=== PATIENT | male | born 1970 | race Caucasian/White ===

== ENCOUNTER 2020-07-25 09:30 | Emergency (ER) | payer OTHER ==
--- NOTE | 2020-07-25 10:15 | RADIOLOGY REPORT (SQ) ---
EXAM DESCRIPTION: HAND LEFT 3 VIEWS IMAGES COMPLETED DATE/TIME: 07/25/2020 9:55 am REASON FOR STUDY: finger deformity COMPARISON: None. EXAM PARAMETERS: NUMBER OF VIEWS: Three views. TECHNIQUE: AP, lateral and oblique radiographic images acquired of the left hand. LIMITATIONS: None. FINDINGS: MINERALIZATION: Normal. BONES: There are 2 separate fractures ; an acute comminuted fracture of the proximal aspect of the 2n d middle phalanx that is associated with dislocation of the 2nd PIP joint, and a nondisplaced vertica lly oriented fracture of the proximal aspect of the 2nd distal phalanx. JOINTS: As above. SOFT TISSUES: Soft tissue deformity associated with the aforementioned fractures. OTHER: No other finding. IMPRESSION: 1. Acute comminuted fracture of the proximal aspect of the 2nd middle phalanx that is as sociated with dislocation of the 2nd PIP joint 2. Acute nondisplaced vertically oriented fracture of the proximal aspect of the 2nd distal phalanx. TECHNICAL DOCUMENTATION: JOB ID: [id number] 2010 [employer]- All Rights Reserved Reading location - IP/workstation name: [email or web address]
[2020-07-25] MEDS ORDERED: LIDOCAINE 2% INJ-PF (20 MG/ML) 2 ML AMPUL INJ ONE (10:28)
[2020-07-25] MEDS ORDERED: HYDROCODONE/ACETAMINOPHEN 5-325 MG TABLET PO ONE (10:30)
[2020-07-25] MEDS ORDERED: DIPH/PERTUSS(ACELL)/TETANUS VAC/PF 0.5 ML SYR (>=10YO) IM ONE (10:30)
[2020-07-25] MEDS ORDERED: LIDOCAINE 1% INJ-PF (10 MG/ML) 30 ML SDV ONE (10:30)
--- NOTE | 2020-07-25 10:30 | ER Document Report ---
ED Hand/Wrist Injury - General Chief Complaint: Hand Injury Stated Complaint: HAND/FINGER PAIN Time Seen by Provider: 07/25/20 10:15 Notes: HPI: 50-year-old male who presents today with an injury to his left index finger. Patient states he was working on a car when the tire exploded causing the rim to kick into his left index fingertip. Unknown tetanus status. No history of diabetes. ROS: See HPI All other review of systems reviewed and otherwise negative EXT: Patient has a shortened irregular left index finger with a small open wound to the dorsal aspect of the finger just distal to the DIP joint. Good capillary refill with sensation intact to the tip SKIN: See above NEURO: See above PSYCH: The patient's mood and manner are appropriate. Grooming and personal hygiene are appropriate. - Related Data Allergies/Adverse Reactions: No Known Allergies Allergy (Unverified 07/25/20 10:32) Past Medical History - Social History Smoking Status: Unknown if Ever Smoked Family History: Reviewed & Not Pertinent Physical Exam - Vital signs Vitals: Temp 97.8 F 07/25/20 09:30 Course - Re-evaluation Re-evalutation: 07/25/20 10:29 Given the above history and physical, we did perform an x-ray. X-rays recorded. I was able to call and speak directly to Dr. Nicole the orthopedic surgeon. He viewed the films. I will perform a bedside digital block and attempt to help reduce the fracture irrigate copiously, provide antibiotics and update the patient's tetanus. He will come in to see the patient after splinting and repeat x-ray. 07/25/20 11:07 Finger splint placed by the tech. I checked the neurovascular status after reduction and splinting and it does appear to be good. 07/25/20 12:16 X-ray as recorded. Orthopedics to see the patient. - Vital Signs Vital signs: Temp Pulse Resp BP Pulse Ox 97.7 F 83 18 96/81 L 93 07/25/20 09:35 07/25/20 09:35 07/25/20 09:35 07/25/20 09:35 07/25/20 09:35 Procedures - Joint Reduction/Fracture Care Left 2nd digit Consent obtained: Yes Conscious sedation: No Pre-procedure NV exam: Yes Fracture: Open Manipulation comment: Traction/countertraction with medial manipulation Post-procedure NV exam: Yes Post-reduction x-ray: Joint reduced Reduction attempts: 1 Complications: No Notes: 07/25/20 11:07 I initially performed a digital block with 1% lidocaine without epinephrine to the left index finger. Good anesthesia uptake. Patient was then irrigated copiously. Discharge - Discharge Clinical Impression: Fracture dislocation of finger Qualifiers: Encounter type: initial encounter Fracture type: open Qualified Code(s): S62.609B - Fracture of unspecified phalanx of unspecified finger, initial encounter for open fracture Condition: Good Disposition: HOME, SELF-CARE Additional Instructions: Come back immediately for any increased pain, swelling, fever, vomiting, or any other acute problems. Please follow-up with orthopedics as we have discussed and have helped expedite for you. Prescriptions: Cephalexin Monohydrate [Keflex 500 mg Capsule] 500 mg PO Q6H 7 Days #28 capsule Hydrocodone/Acetaminophen [[place] 5-325 mg Tablet] 1 tab PO Q8 #12 tablet Referrals: SAI NICOLE JR, [ACTIVE PROVISIONAL STAFF] - Follow up as needed
[2020-07-25] MEDS ORDERED: LIDOCAINE 1% INJ-PF (10 MG/ML) 30 ML SDV INJ ONE (10:32)
--- NOTE | 2020-07-25 12:02 | RADIOLOGY REPORT (SQ) ---
EXAM DESCRIPTION: HAND LEFT 3 VIEWS IMAGES COMPLETED DATE/TIME: 07/25/2020 11:50 am REASON FOR STUDY: 2; s/p reduction COMPARISON: PA, lateral and oblique views of the left hand from 07/25/2020. EXAM PARAMETERS: NUMBER OF VIEWS: Three views. TECHNIQUE: AP, lateral and oblique radiographic images acquired of the left hand. LIMITATIONS: None. FINDINGS: MINERALIZATION: Normal. BONES: Persistent overlap of the articular surfaces of the 2nd proximal and middle phalanges. There is re- demonstration of a comminuted displaced fracture of the 2nd middle phalanx and of a nondisplac ed vertically oriented fracture of the 2nd distal phalanx. JOINTS: As above. SOFT TISSUES: Soft tissue deformity over the 2nd PIP joint. OTHER: No other finding. IMPRESSION: Persistent overlap of the articular surfaces of the 2nd proximal and middle phalanges. There is re- demonstration of a comminuted displaced fracture of the 2nd middle phalanx and of a nond isplaced vertically oriented fracture of the 2nd distal phalanx. TECHNICAL DOCUMENTATION: JOB ID: [id number] 2010 [employer]- All Rights Reserved Reading location - IP/workstation name: [email or web address]
[2020-07-25 12:42] VITALS: BP 122/72
--- NOTE | 2020-07-25 13:27 | PDOC CONSULTATION ---
Consultation Consult Date: 07/25/20 Provider Consulted: SAI NICOLE JR Consult reason:: left index finger fracture History of Present Illness Patient complains of: left index pain History of Present Illness: ZANDRA MONCADA JR is a 50 year old male who reports an injury to his left index finger. He was inflating a tire when the rim exploded and struck him in the finger. He is sequently had a small laceration to the dorsal aspect of the distal phalanx as well as some deformity and swelling of the finger and presented to the emergency department for further evaluation. He denies any other associated symptoms or injury. He denies any numbness to the distal fingertip. Pain is described as aching, burning in nature, 8 out of 10, worse with activity and motion, improved with rest and pain medication. Prior to my arrival in the emergency department the patient was received a block and had a reduction maneuver performed by the emergency room physician. Additionally the wound was cared for with a sterile dressing. The patient received tetanus prophylaxis and antibiotics in the emergency department. Subsequent to the reduction and x-ray was performed that demonstrates improved reduction of the middle phalanx of the index. Social History Smoking Status: Unknown if Ever Smoked Electronic Cigarette use?: Yes Family History Family History: Reviewed & Not Pertinent Parental Family History Reviewed: No Children Family History Reviewed: NA Sibling(s) Family History Reviewed.: NA Medication/Allergy Home Medications: Cephalexin Monohydrate [Keflex 500 mg Capsule] 500 mg PO Q6H 7 Days #28 capsule 07/25/20 Hydrocodone/Acetaminophen [[place] 5-325 mg Tablet] 1 tab PO Q8 #12 tablet 07/25/20 Allergies/Adverse Reactions: No Known Allergies Allergy (Unverified 07/25/20 10:32) Review of Systems Review of Systems: Constitutional: ABSENT: anorexia, chills, night sweats Cardiovascular: ABSENT: chest pain Respiratory: ABSENT: dyspnea Gastrointestinal: ABSENT: vomiting Genitourinary: ABSENT: dysuria Integumentary: ABSENT: rash Neurological: ABSENT: confusion, memory loss, numbness Psychiatric: ABSENT: hallucinations Hematologic/Lymphatic: ABSENT: easy bleeding Physical Exam Vital Signs: Temp Pulse Resp BP Pulse Ox 98.7 F 86 16 122/72 100 07/25/20 12:41 07/25/20 12:41 07/25/20 12:41 07/25/20 12:41 07/25/20 12:41 Intake & Output 07/24/20 07/25/20 07/26/20 06:59 06:59 06:59 Weight 70.7 kg Physical Exam: General appearance: PRESENT: no acute distress, cooperative, well-nourished Head exam: PRESENT: atraumatic, normocephalic Eye exam: PRESENT: EOMI Ear exam: PRESENT: normal external ear exam Mouth exam: PRESENT: neck supple Neck exam: ABSENT: tracheal deviation Respiratory exam: PRESENT: symmetrical, unlabored. ABSENT: accessory muscle use, wheezes Pulses: PRESENT: normal radial pulses, normal dorsalis pedis pulse Vascular exam: PRESENT: normal capillary refill GI/Abdominal exam: ABSENT: distended, firm Extremities exam: PRESENT: full ROM of bilateral shoulders, elbows wrists, knees, hips and ankles without pain Musculoskeletal exam: PRESENT: full ROM, normal inspection of all 4 extremities aside from that noted below. Neurological exam: PRESENT: alert, awake, oriented to person, oriented to place, oriented to time Psychiatric exam: PRESENT: appropriate affect. ABSENT: agitated Focused psych exam: ABSENT: catatonic Skin exam: PRESENT: intact. ABSENT: dry All as above aside from that noted in the HPI and the following: Left upper extremity sensation grossly intact to radial median and ulnar nerve. upper extremity motor function grossly intact to radian median ulnar nerve AIN and PIN Pulses 2+, capillary refill less than 2 seconds No deformity noted full range of motion of the elbow shoulder wrist and fingers without pain Compartments soft, no tenderness to palpation skin intact Left index finger has a small laceration of the dorsal aspect just distal to the DIP. The distal fingertip has intact sensation and capillary refill. Less than 2 seconds. There is no laceration or skin wound at the level of the middle phalanx or PIP joint. The patient was placed in a soft dressing with a volar aluminum splint that is currently in adequate position. Diffuse swelling is present. Results Impressions: Hand X-Ray 07/25/20 11:07 IMPRESSION: Persistent overlap of the articular surfaces of the 2nd proximal and middle phalanges. There is re- demonstration of a comminuted displaced fracture of the 2nd middle phalanx and of a nondisplaced vertically oriented fracture of the 2nd distal phalanx. Assessment & Plan - Diagnosis (1) Fracture of middle phalanx of left index finger Is this a current diagnosis for this admission?: Yes Plan: The patient has a fracture of the distal phalanx that is small and nondisplaced. More concerning is the severe comminuted shortened middle phalanx fracture at the base of the middle phalanx. This will require operative intervention for correction as well as his best chance of a long-term functional left index finger. I discussed with the patient who agrees. All questions were answered. We discussed operative and nonoperative management as well as the risks benefits of each and the potential prognosis. The patient agrees to surgery. We will place him on the schedule for Dr. Apodaca on Thursday of this week. Until that time the patient is to continue to wear his splint without removal. Nonweightbearing left upper extremity Pain control as prescribed by the emergency department (2) Fracture dislocation of finger Qualifiers: Encounter type: initial encounter Fracture type: open Qualified Code(s): S62.609B - Fracture of unspecified phalanx of unspecified finger, initial encounter for open fracture
== END 2020-07-25 12:53 | disposition home or self-care (01) ==
LOC: ER 09:30
PROC: 0PSVXZZ Reposition Left Finger Phalanx, External Approach (ICD-10-PCS; principal; 2020-07-25)
DX: S62.609B Fracture of unspecified phalanx of unspecified finger, initial encounter for open fracture (principal); M79.645 Pain in left finger(s); W22.8XXA Striking against or struck by other objects, initial encounter
CPT/HCPCS: 99284; 90471; 73130; 90715; 26725; J3490

== ENCOUNTER 2020-07-27 11:02 | Day surgery (SDC) | payer OTHER ==
[~2020-07-27 11:02] MED LIST: CEFAZOLIN 2 GM/D5W RTU 2 GM/50 ML RTUPB IV PRN; CEFAZOLIN SODIUM 2 GM in DEXTROSE 5%-WATER 100 ML IV PRN; FENTANYL CITRATE INJ/PF 100 MCG/2 ML AMPUL ONE; MIDAZOLAM 2 MG/2 ML INJ ONE; ONDANSETRON HCL INJ/PF 4 MG/2 ML SDV ONE; PROPOFOL INJ 200 MG/20 ML VIAL IV ONE
[2020-07-27 12:18] LABS: HEMATOCRIT 45.3 % (37.9-51.0); HEMOGLOBIN 15.8 g/dL (13.5-17.0); MEAN CORPUSCULAR HEMOGLOBIN 30.8 pg (27.0-33.4); MEAN CORPUSCULAR HGB CONC 34.8 g/dL (32.0-36.0); MEAN CORPUSCULAR VOLUME 89 fl (80-97); PLATELET COUNT 281 10^3/uL (150-450); RED BLOOD COUNT 5.12 10^6/uL (4.35-5.55); RED CELL DISTRIBUTION WIDTH 13.6 % (11.5-14.0); WHITE BLOOD COUNT 6.2 10^3/uL (4.0-10.5)
[2020-07-27 12:19] LABS: APPEARANCE,URINE CLEAR; BILIRUBIN,URINE NEGATIVE (NEGATIVE); COLOR,URINE YELLOW; GLUCOSE, URINE NEGATIVE (NEGATIVE); KETONES,URINE NEGATIVE (NEGATIVE); LEUKOCYTE ESTERASE,URINE NEGATIVE (NEGATIVE); NITRITE,URINE NEGATIVE (NEGATIVE); PROTEIN,URINE NEGATIVE (NEGATIVE); URINE SPECIFIC GRAVITY 1.027; UROBILINOGEN,URINE NEGATIVE mg/dL (<2.0)
--- NOTE | 2020-07-27 12:36 | PDOC H&P ---
History of Present Illness Patient complains of: Left index finger injury History of Present Illness: ZANDRA MONCADA JR is a 50 year old male who on 07/25/2020 sustained an injury to his left index finger when it got hit with a car tire john. He was seen in the emergency room which demonstrated significant comminution and displacement. Closed reduction was performed improving patient's alignment although patient continues to have discomfort. Pain worse with any attempted motion. Notes numbness along the distal tip. Has been wearing the splint as instructed. Pain 05/02. Past Medical History Cardiac Medical History: Denies: Coronary Artery Disease, Myocardial Infarction, Hypertension Pulmonary Medical History: Denies: Asthma, Bronchitis, Chronic Obstructive Pulmonary Disease (COPD), Pneumonia Neurological Medical History: Denies: Seizures Hematology: Denies: Anemia Social History Smoking Status: Former Smoker Family History Family History: Reviewed & Not Pertinent Parental Family History Reviewed: No Children Family History Reviewed: No Sibling(s) Family History Reviewed.: No Medication/Allergy Home Medications: Cephalexin Monohydrate [Keflex 500 mg Capsule] 500 mg PO Q6H 7 Days #28 capsule 07/25/20 Hydrocodone/Acetaminophen [[place] 5-325 mg Tablet] 1 tab PO Q8 #12 tablet 01/12 Allergies/Adverse Reactions: No Known Allergies Allergy (Unverified 07/25/20 10:32) Review of Systems Constitutional: ABSENT: chills, fever(s), headache(s), weight gain, weight loss Eyes: ABSENT: visual disturbances Ears: ABSENT: hearing changes Cardiovascular: ABSENT: chest pain, dyspnea on exertion, edema, orthropnea, palpitations Respiratory: ABSENT: cough, hemoptysis Gastrointestinal: ABSENT: abdominal pain, constipation, diarrhea, hematemesis, hematochezia, nausea, vomiting Genitourinary: ABSENT: dysuria, hematuria Musculoskeletal: PRESENT: as per HPI Integumentary: ABSENT: rash, wounds Neurological: ABSENT: abnormal gait, abnormal speech, confusion, dizziness, focal weakness, syncope Psychiatric: ABSENT: anxiety, depression, homidical ideation, suicidal ideation Endocrine: ABSENT: cold intolerance, heat intolerance, menstrual abnormalities, polydipsia, polyuria Hematologic/Lymphatic: ABSENT: easy bleeding, easy bruising, lymphadenopathy Physical Exam Vital Signs: Intake & Output 07/26/20 07/27/20 07/28/20 06:59 06:59 06:59 Weight 65.77 kg General appearance: PRESENT: no acute distress, well-developed, well-nourished Head exam: PRESENT: atraumatic, normocephalic Eye exam: PRESENT: conjunctiva pink, EOMI, PERRLA. ABSENT: scleral icterus Ear exam: PRESENT: normal external ear exam Mouth exam: PRESENT: moist, tongue midline Neck exam: PRESENT: full ROM. ABSENT: carotid bruit, JVD, lymphadenopathy, thyromegaly Cardiovascular exam: PRESENT: RRR. ABSENT: diastolic murmur, rubs, systolic murmur Pulses: PRESENT: normal dorsalis pedis pul, +2 pedal pulses bilateral Vascular exam: PRESENT: normal capillary refill GI/Abdominal exam: PRESENT: normal bowel sounds, soft. ABSENT: distended, guarding, mass, organolmegaly, rebound, tenderness Rectal exam: PRESENT: deferred Musculoskeletal exam: PRESENT: other - Left index finger: Splint removed today. Ulnar angular deformity at the PIP joint. Significant swelling on the PIP joint with appropriate tenderness palpation. Hypoesthesias on the distal tip. Pain with any attempted motion. Cap refill less than 2 seconds. Normal skin turgor. Neurological exam: PRESENT: alert, awake, oriented to person, oriented to place, oriented to time, oriented to situation, CN II-XII grossly intact. ABSENT: motor sensory deficit Psychiatric exam: PRESENT: appropriate affect, normal mood. ABSENT: homicidal ideation, suicidal ideation Skin exam: PRESENT: dry, intact, warm. ABSENT: cyanosis, rash Results Laboratory Results: 07/27/20 12:07 07/27/20 07/27/20 11:50 12:07 WBC 6.2 RBC 5.12 Hgb 15.8 Hct 45.3 MCV 89 MCH 30.8 MCHC 34.8 RDW 13.6 Plt Count 281 Urine Color YELLOW Urine Appearance CLEAR Urine pH 5.0 Ur Specific [place] 1.027 Urine Protein NEGATIVE Urine Glucose (UA) NEGATIVE Urine Ketones NEGATIVE Urine Blood SMALL H Urine Nitrite NEGATIVE Ur Leukocyte Esterase NEGATIVE Urine WBC (Auto) 2 Urine RBC (Auto) 5 Assessment & Plan - Diagnosis (1) Fracture of middle phalanx of left index finger Qualifiers: Encounter type: subsequent encounter Fracture type: closed Fracture alignment: displaced Fracture healing: with routine healing Qualified Code(s): S62.621D - Displaced fracture of middle phalanx of left index finger, subsequent encounter for fracture with routine healing Is this a current diagnosis for this admission?: Yes Plan: Patient sustained severe injury to his PIP joint including the proximal aspect of the middle phalanx with notable comminution and collapse. Given the intra- articular nature of the fracture patient is certainly at high risk for development in terms of posttraumatic arthritis stiffness and persistent pain. Today we discussed treatment options I have recommended proceeding with open reduction versus closed reduction percutaneous pinning with placement of external fixator to the digit. Patient understands limitations of operative treatment given the severity of his injury. Discussed risks and benefits including neurovascular is, postoperative pain, postoperative stiffness, infection, hardware failure patient is verbalized understanding consented for surgical procedure. - Time Time Spent: 30 to 50 Minutes Anticipated Discharge Disposition: Home, Self Care Anticipated Discharge Timeframe: within 24 hours
[2020-07-27 12:44] LABS: ANION GAP 9 (5-19); BLOOD UREA NITROGEN 13 mg/dL (7-20); CALCIUM 9.4 mg/dL (8.4-10.2); CARBON DIOXIDE 26 mmol/L (22-30); CHLORIDE 105 mmol/L (98-107); GLUCOSE 100 mg/dL (75-110); POTASSIUM 4.5 mmol/L (3.6-5.0)
[2020-07-27] MEDS ORDERED: CEFAZOLIN 2 GM/D5W RTU 2 GM/50 ML RTUPB IV ONE (12:48)
[2020-07-27] MEDS ORDERED: LIDOCAINE 1% INJ-PF (10 MG/ML) 30 ML SDV ONE (14:04)
[2020-07-27] MEDS ORDERED: PROMETHAZINE HCL INJ 25 MG/1 ML VIAL IV PRN ×2 (14:36)
[2020-07-27] MEDS ORDERED: ONDANSETRON HCL INJ/PF 4 MG/2 ML SDV IV PRN (14:36)
[2020-07-27] MEDS ORDERED: FENTANYL CITRATE INJ/PF 100 MCG/2 ML AMPUL IV PRN ×3 (14:36)
[2020-07-27] MEDS ORDERED: MORPHINE SULFATE 10 MG/ML INJ IV PRN ×2 (14:36→15:28)
[2020-07-27] MEDS ORDERED: MEPERIDINE HCL/PF INJ 25 MG/1 ML DISP.SYRIN IV PRN (14:36)
[2020-07-27] MEDS ORDERED: DIPHENHYDRAMINE HCL 50 MG/ML VIAL IV PRN (14:36)
[2020-07-27] MEDS ORDERED: OXYCODONE-ACETAMINOPHEN 5-325 MG TABLET PO PRN (15:28)
--- NOTE | 2020-07-27 15:28 | Discharge Summary ---
Discharge Summary (SDC) - Discharge Final Diagnosis: Left Index Middle Phalanx Fracture Date of Surgery: 07/27/20 Discharge Date: 07/27/20 Condition: Good Treatment or Instructions: Schedule Follow Up w/ Dr. Williams Apodaca @ [facility] to be seen in 10-14 days or as scheduled [place]: [place]: [place]: Ice and elevate Keep splint clean/dry/intact, do not remove. If your fingers become numb please unwrap the Jorge wrap but leave the splint in place, if the sensation does not return within 30 minutes please return to the emergency department. May begin finger range of motion attempting to make full fist. Please use ibuprofen (Motrin or Advil) 600-800 mg every 8 hours as needed for pain or fever DO NOT TAKE w/ TORADOL may use once TORADOL complete. You may also use acetaminophen (Tylenol) 1000 mg every 4-6 hours as needed for pain or fever. Please be aware that many medications contain acetaminophen, do not exceed a total of 1000 mg of acetaminophen every 6 hours. If ibuprofen and acetaminophen are not sufficient for your pain you may take the Percocet/Tenstrike. Please be aware that the Percocet/Tenstrike does contain Tylenol. Stool softener of choice when on pain medication. USE OF [id number] IBUPROFEN: Ibuprofen (Advil, Nuprin, Medipren, Motrin IB) is a medication for fever and pain control. In addition, it has anti- inflammatory effects which may be beneficial, especially in the treatment of injuries. It's best to take ibuprofen with food. Persons with ulcer disease or allergy to aspirin should notify their physician of this before taking ibuprofen. Ibuprofen can be given every four to six hours, for a total of four doses daily. Age Pain or fever dose Antiinflammatory dose 6-8 yr 200 mg (1 tab) 200 mg (1 tab) 9-11 yr 200 mg (1 tab) 200-400 mg (1-2 tab) 11-14 yr 200-400 mg (1-2 tab) 400 mg (2 tab) 15-adult 400 mg (2 tab) 600 mg (3 tab) ORAL NARCOTIC MEDICATION: You have been given a prescription for pain control. This medication is a narcotic. It's best taken with food, as nausea can result if taken on an empty stomach. Don't operate machinery or drive within six hours of taking this medication. Do not combine this medicine with alcohol, or with any medication which can cause sedation (such as cold tablets or sleeping pills) unless you get permission from the physician. Narcotics tend to cause constipation. If possible, drink plenty of fluids and eat a diet high in fiber and fruits. Please be aware that prescription narcotics also have the potential for abuse. People become addicted to these medications because of the general sense of wellbeing that they induce. This feeling along with a significant reduction in tension, anxiety, and aggression provides a stimulating seductive quality to these drugs. Once your pain is under control, we encourage you to discard your unused narcotics. Prescriptions: Oxycodone HCl/Acetaminophen [Percocet 7.5-325 mg Tablet] 1 tab PO Q6 PRN #25 tab PRN Reason: Discharge Diet: As Tolerated Respiratory Treatments at Home: Deep Breathing/Coughing Discharge Activity: No Lifting Over 10 Pounds, No Lifting/Push/Pulling Report the Following to Your Physician Immediately: Fever over 101 Degrees, Unusual Bleeding, Redness, Swelling, Warmth, Increased Soreness
--- NOTE | 2020-07-27 15:36 | EKG REPORT ---
SEVERITY:- NORMAL ECG - SINUS RHYTHM : Confirmed by: Ameya Fernandez MD 27-Jul-2020 15:35:51
[2020-07-27] MEDS ORDERED: OXYCODONE-ACETAMINOPHEN 5-325 MG TABLET ONE (16:01)
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
--- NOTE | 2020-07-27 18:20 | RADIOLOGY REPORT (SQ) ---
EXAM DESCRIPTION: FINGER LEFT; NO CHG FLUORO IMAGES COMPLETED DATE/TIME: 07/27/2020 3:28 pm REASON FOR STUDY: PERCUTANEOUS PINNING LEFT FINGER ASSISTED WITH FLUORO IN OR S62.609A FRACTURE OF UNSP PHALANX OF UNSP FINGER, INIT FOR C COMPARISON: 07/25/2020. FLUOROSCOPY TIME: 2 minutes 47 seconds. 4 images saved to PACS. RADIATION DOSE: Image TECHNIQUE: Intra-operative images acquired during surgical procedure to evaluate progress. NUMBER OF IMAGES: 4 images. LIMITATIONS: None. FINDINGS: Images of the finger acquired during surgical procedure. IMPRESSION: IMAGE(S) OBTAINED DURING PROCEDURE. COMMENT: Quality ID 145: Final reports for procedures using fluoroscopy that document radiation exp osure indices, or exposure time and number of fluorographic images (if radiation exposure indices are not available) Please consult full operative report of the attending physician for description of the procedure. TECHNICAL DOCUMENTATION: JOB ID: [id number] 2010 [email or web address]- All Rights Reserved Reading location - IP/workstation name: [email or web address]
--- NOTE | 2020-07-27 18:20 | RADIOLOGY REPORT (SQ) ---
EXAM DESCRIPTION: FINGER LEFT; NO CHG FLUORO IMAGES COMPLETED DATE/TIME: 07/27/2020 3:28 pm REASON FOR STUDY: PERCUTANEOUS PINNING LEFT FINGER ASSISTED WITH FLUORO IN OR S62.609A FRACTURE OF UNSP PHALANX OF UNSP FINGER, INIT FOR C COMPARISON: 07/25/2020. FLUOROSCOPY TIME: 2 minutes 47 seconds. 4 images saved to PACS. RADIATION DOSE: Image TECHNIQUE: Intra-operative images acquired during surgical procedure to evaluate progress. NUMBER OF IMAGES: 4 images. LIMITATIONS: None. FINDINGS: Images of the finger acquired during surgical procedure. IMPRESSION: IMAGE(S) OBTAINED DURING PROCEDURE. COMMENT: Quality ID 145: Final reports for procedures using fluoroscopy that document radiation exp osure indices, or exposure time and number of fluorographic images (if radiation exposure indices are not available) Please consult full operative report of the attending physician for description of the procedure. TECHNICAL DOCUMENTATION: JOB ID: [id number] 2010 [email or web address]- All Rights Reserved Reading location - IP/workstation name: [email or web address]
--- NOTE | 2020-07-27 18:20 | RADIOLOGY REPORT (SQ) ---
EXAM DESCRIPTION: CHEST SINGLE VIEW IMAGES COMPLETED DATE/TIME: 07/27/2020 1:43 pm REASON FOR STUDY: PRE OP COMPARISON: None. EXAM PARAMETERS: NUMBER OF VIEWS: One view. TECHNIQUE: Single frontal radiographic view of the chest acquired. RADIATION DOSE: NA LIMITATIONS: None. FINDINGS: LUNGS AND PLEURA: No opacities, masses or pneumothorax. No pleural effusion. MEDIASTINUM AND HILAR STRUCTURES: No masses. Contour normal. HEART AND VASCULAR STRUCTURES: Heart normal in size. Normal vasculature. BONES: No acute findings. HARDWARE: None in the chest. OTHER: No other significant finding. IMPRESSION: NO ACUTE RADIOGRAPHIC FINDING IN THE CHEST. TECHNICAL DOCUMENTATION: JOB ID: [id number] 2010 [facility]- All Rights Reserved Reading location - IP/workstation name: [email or web address]
[2020-07-27 19:11] VITALS: BP 106/56
== END 2020-07-27 17:05 | disposition home or self-care (01) ==
LOC: OROUT 11:02
PROVIDERS: ATTEND Orthopaedic Surgery
DX: S63.271A Dislocation of unspecified interphalangeal joint of left index finger, initial encounter (principal); X58.XXXA Exposure to other specified factors, initial encounter; Z87.891 Personal history of nicotine dependence; Z03.818 Encounter for observation for suspected exposure to other biological agents ruled out
CPT/HCPCS: 36415; 85027; 87635; 80048; 81001; 71045; 73140; 93005; 93010; 01830; 26742; C1713; J2250; J3010; J3490; J2405; J2704; J0690; C9803; J7060